=== PATIENT | female | born 1975 ===

== ENCOUNTER 2017-10-19 21:59 | Emergency (ER) | payer BC, OTHER ==
[2017-10-19 22:14] VITALS: O2SAT 99
[2017-10-19] MEDS ORDERED: Sodium Chloride 0.9% 1,000 ML IV ONE (22:36)
[2017-10-19] MEDS ORDERED: cefTRIAXone IV 1 gm in Dextros 50 ML IVPB STA (22:38)
[2017-10-19 23:04] LABS: BASO % 0.5 % (0.0-2.0); EOS # 0.1 K/uL (0.0-0.7); EOS % 1.5 % (0.0-4.0); HEMATOCRIT 41.4 % (34.0-47.0); LYMPH % 34.3 % (20.0-40.0); MEAN CELL VOLUME 83.1 fL (81.0-99.0); MEAN CORPUSCULAR HEMOGLOBIN 26.6 pg (27.0-31.0); MEAN PLATELET VOLUME 8.9 fL (7.2-11.7); MONO # 0.5 K/uL (0.0-0.8); MONO % 8.7 % (0.0-10.0); RED CELL DISTRIBUTION WIDTH 15.1 % (11.5-14.5); WHITE BLOOD COUNT 5.8 K/uL (4.8-10.8)
[2017-10-19] MEDS ORDERED: Sodium Chloride 0.9% 1,000 ML ONE (23:10)
[2017-10-19 23:16] LABS: ALB/GLOB RATIO 1.3 (1.0-2.1); ALKALINE PHOSPHATASE 89 U/L (38-126); ALT/SGPT 37 U/L (9-52); AST/SGOT 17 U/L (14-36); BILIRUBIN,TOTAL 0.6 mg/dL (0.2-1.3); BLOOD UREA NITROGEN 11 mg/dL (7-17); CARBON DIOXIDE 31 mmol/L (22-30); CHLORIDE 102 mmol/L (98-107); GFR AFRICAN-AMERICAN > 60; GLUCOSE,RANDOM 82 mg/dL (65-105); POTASSIUM 3.6 mmol/L (3.6-5.2); SODIUM 141 mmol/L (132-148); TOTAL PROTEIN 7.3 g/dL (6.3-8.3)
[2017-10-19] MEDS ORDERED: Bacitracin 500 Units/gm Oint Foilpak UD TOP ONE (23:41)
[2017-10-19] MEDS ORDERED: Bacitracin 500 Units/gm Oint Foilpak UD ONE (23:50)
--- NOTE | 2017-10-20 | C.PDOC ---
History Of Present Illness Pt injured right leg by scraping it. She develop redness around the abrasions. Time Seen by Provider: 10/19/17 22:26 Chief Complaint (Nursing): Lower Extremity Problem/Injury History Per: Patient Onset/Duration Of Symptoms: Days (9) Current Symptoms Are (Timing): Still Present Location Of Injury: Right: Leg Quality Of Symptoms: Painful, Swollen Severity: Moderate Additional History Per: Prior Records Past Medical History Reviewed: Historical Data, Nursing Documentation, Vital Signs Vital Signs: Last Vital Signs Temp 97.7 F 10/19/17 22:06 Pulse 80 10/19/17 22:06 Resp 14 10/19/17 22:06 BP 153/91 H 10/19/17 22:06 Pulse Ox 99 10/19/17 22:06 - Medical History PMH: Diabetes (Type 1), HTN, Seizures (epilepsy) Family History: States: Unknown Family Hx - Social History Hx Alcohol Use: No Hx Substance Use: No - Immunization History Hx Tetanus Toxoid Vaccination: No Hx Influenza Vaccination: No Hx Pneumococcal Vaccination: No Review Of Systems Except As Marked, All Systems Reviewed And Found Negative. Constitutional: Negative for: Weakness Cardiovascular: Negative for: Chest Pain Respiratory: Negative for: Shortness of Breath Gastrointestinal: Negative for: Vomiting, Abdominal Pain Musculoskeletal: Positive for: Leg Pain (right). Negative for: Neck Pain, Back Pain Skin: Positive for: Rash (right leg) Neurological: Negative for: Weakness, Numbness Physical Exam - Physical Exam Appears: Non-toxic, No Acute Distress Skin: Warm, Dry, Rash (right anterior leg) Head: Atraumatic, Normacephalic Eye(s): bilateral: PERRL, EOMI Neck: Normal ROM, Supple Cardiovascular: Rhythm Regular Respiratory: Normal Breath Sounds, No Accessory Muscle Use Gastrointestinal/Abdominal: Soft, No Tenderness Back: No CVA Tenderness Extremity: Normal ROM, Tenderness (right anterior leg), Swelling (right anterior leg), Other (Abrasions on right anterior leg with surrounding erythema. ) Pulses: Right Dorsalis Pedis: Normal Neurological/Psych: Oriented x3, Normal Motor, Normal Sensation ED Course And Treatment - Laboratory Results Result Diagrams: 10/19/17 23:00 10/19/17 23:00 Lab Interpretation: No Acute Changes O2 Sat by Pulse Oximetry: 99 Pulse Ox Interpretation: Normal - Other Rad Right tib/fib x-rays X-Ray: Interpreted by Me, Viewed By Me Interpretation: No fx. Reassessment Condition: Improved Disposition Counseled Patient/Family Regarding: Studies Performed, Diagnosis, Need For Followup, Rx Given - Disposition Disposition: HOME/ ROUTINE Disposition Time: 00:01 Condition: IMPROVED Additional Instructions: Follow up with your doctor. Return to the ER if you develop fever, pus drainage , worsening of symptoms or if you have any other concerns. Prescriptions: Cephalexin [cephalexin] 500 mg PO QID #28 cap Sulfamethoxazole/Trimethoprim [Bactrim DS 800 mg-160 mg] 1 tab PO BID #14 tab Instructions: Cellulitis (ED) Forms: [employer] ([employer]) - Clinical Impression Clinical Impression: Infected abrasion of right leg
[2017-10-20 00:01] VITALS: BP 145/82; PULSE 84; RESP 16; TEMP 98.2
--- NOTE | 2017-10-20 08:39 | RAD ---
PROCEDURE: Radiographs of the right tibia and fibula. HISTORY: redness/swelling s/p injury COMPARISON: None available. TECHNIQUE: Frontal and lateral views obtained. FINDINGS: BONES: No fracture or destructive lesion. JOINT SPACES: Unremarkable. OTHER FINDINGS: None. IMPRESSION: Unremarkable radiographs of the right tibia and fibula.
== END 2017-10-20 00:15 | disposition home or self-care (01) ==
LOC: C.ER 21:59
DX: S80.811A Abrasion, right lower leg, initial encounter (principal); L08.9 Local infection of the skin and subcutaneous tissue, unspecified; X58.XXXA Exposure to other specified factors, initial encounter
CPT/HCPCS: 73590; 80053; 85025; 87040; 90471; 90715; 96365; 99284; J0696; J7040